=== PATIENT | female | born 1955 | race Caucasian/White ===

== ENCOUNTER → 2021-05-28 | Outpatient (CLI) | payer MEDICARE | END | disposition home or self-care (01) | LOC: SHCH 14:57 | PROVIDERS: ATTEND Internal Medicine Cardiovascular Disease | DX: I35.1 Nonrheumatic aortic (valve) insufficiency (principal); R55 Syncope and collapse; R00.2 Palpitations | CPT/HCPCS: 93306; 93356 ==

== ENCOUNTER 2021-07-15 06:54 | Day surgery (SDC) | payer MEDICARE ==
[2021-07-13 11:31] LABS: BASOPHILS % (AUTO) 0.2 % (0.0-5.0); LYMPHOCYTES % (AUTO) 30.7 % (21.0-51.0); MEAN CORPUSCULAR HEMOGLOBIN 30.1 pg (27.0-33.0); MEAN CORPUSCULAR HGB CONC 32.4 g/dL (32.0-36.0); MEAN CORPUSCULAR VOLUME 93.1 fL (79-99); MONOCYTES % (AUTO) 7.3 % (3.0-13.0); NEUTROPHILS % (AUTO) 61.6 % (40.0-77.0); PLATELET COUNT (AUTO) 175 K/uL (130-400); RED BLOOD CELL COUNT(AUTO) 4.08 MIL/uL (4.00-5.50); RED CELL DISTRIBUTION WIDTH 13.5 % (11.0-15.5); WHITE BLOOD COUNT (AUTO) 5.5 K/uL (4.8-10.8)
[2021-07-13 11:46] LABS: CREATININE 0.8 mg/dL (0.5-1.5); POTASSIUM 4.3 mmol/L (3.5-5.1)
[2021-07-13 11:49] LABS: PROTHROMBIN TIME 10.9 SEC (9.6-11.6)
[2021-07-13 11:50] LABS: PARTIAL THROMBOPLASTIN TIME 24.5 SEC (26.3-35.5)
[2021-07-14 09:27] VITALS: BP 170/91
[~2021-07-15] VITALS: Ht 182.9 cm; Wt 79.0 kg
[2021-07-15] VITALS (8 sets, daily range): BP systolic 122–155; BP diastolic 63–95
[~2021-07-15 06:54] MED LIST: 0.9%NACL 1000ML 1,000 ML IV SCH; ADV250 IH; ALBU0.63 IH; ALBUHFA IH; ASCO250T22 PO; AZEL137S11 NS; DEXL60CA3 PO; ESTR10TA9 VG; ESTR1TAB17 PO; FAMC500T8 PO; FLUTICASONE IH; FURO40TA5 PO; GLUTATHIONE PO; HYPERSAL 3.5% IH; KETO5DRO82 OP; LACT1CAP78 PO; LEVO112T4 PO; LINA290C PO; LOTE10DR OP; MTH/1CAP7 PO; NITRO STAT; OIL OF OREGANO PO; OMEG-116 PO; OXYC15TA2 PO; POTA-202 PO; PROVIGIL 200 MG PO; STEVIA PO; TIZA-211 PO; VITAD50000 PO; ZINC30TA2 PO; [UNRECOGNIZED DRUG - OTHER] PO; [UNRECOGNIZED DRUG - OTHER] PO; [UNRECOGNIZED DRUG - OTHER] PO; [UNRECOGNIZED DRUG - OTHER] PO; [UNRECOGNIZED DRUG - OTHER] PO
[2021-07-15] MEDS ORDERED: MIDAZOLAM HCL 1 MG/ML 2ML VIAL ONE (14:51)
[2021-07-15] MEDS ORDERED: LIDOCAINE HCL 400MG/20ML VIAL ONE (14:51)
[2021-07-15] MEDS ORDERED: MEPERIDINE-PF 25 MG/ML SYG ONE (14:51)
[2021-07-15] MEDS ORDERED: HEPARIN 10,000 UNIT/10ML (1,000 UNIT/ML) VIAL ONE (14:51)
[2021-07-15] MEDS ORDERED: FENTANYL CITRATE PF 50 MCG/1 ML 2ML VIAL ONE (15:16)
[2021-07-15] MEDS ORDERED: ISOPROTERENOL HCL 0.2 MG/ML AMP/VIAL/BAG ONE (15:56)
[2021-07-15] MEDS ORDERED: PIND10TA2 PO (16:58)
== END 2021-07-15 20:15 | disposition home or self-care (01) ==
LOC: DAH 06:54
PROVIDERS: ATTEND Internal Medicine Cardiovascular Disease
DX: I47.1 Supraventricular tachycardia (principal); G90.3 Multi-system degeneration of the autonomic nervous system; I49.3 Ventricular premature depolarization; I10 Essential (primary) hypertension; E03.9 Hypothyroidism, unspecified; J45.909 Unspecified asthma, uncomplicated; G47.33 Obstructive sleep apnea (adult) (pediatric); K21.9 Gastro-esophageal reflux disease without esophagitis; Z79.01 Long term (current) use of anticoagulants; Z88.8 Allergy status to other drugs, medicaments and biological substances; Z88.0 Allergy status to penicillin
CPT/HCPCS: 36415; 80048; 85025; 85610; 85730; 93620; 93621; 93623; A4215; A4216; A4221; A4222; A4223 ×3; A4606; A4649 ×2; A4663; C1730 ×4; C1894 ×5; J1644; J2250; J3010; J3490 ×2; J7030; 99156; 99157; J2175

== ENCOUNTER → 2021-11-16 | Outpatient (CLI) | payer MEDICARE ==
[~2021-11-16] MED LIST changes: -0.9%NACL 1000ML 1,000 ML IV SCH; +PIND10TA2 PO
== END | disposition home or self-care (01) ==
LOC: RAH 09:44
PROVIDERS: ATTEND Internal Medicine Gastroenterology
DX: R13.12 Dysphagia, oropharyngeal phase (principal); R63.30 Feeding difficulties, unspecified
CPT/HCPCS: 74230; 92611

== ENCOUNTER → 2022-02-09 | Outpatient (CLI) | payer MEDICARE | END | disposition home or self-care (01) | LOC: RAH 07:05 | PROVIDERS: ATTEND Internal Medicine Gastroenterology | DX: K31.84 Gastroparesis (principal) | CPT/HCPCS: 78264; A9541 ==

== ENCOUNTER → 2022-03-14 | Outpatient (CLI) | payer MEDICARE ==
[~2022-03-14] MED LIST changes: +GLYCOPYRROLATE 1 MG/5 ML SYRINGE ONE; +PHENYLEPHRINE HCL 10 MG/ML 1ML VIAL IV ONE
== END | disposition home or self-care (01) ==
LOC: RAH 15:02
PROVIDERS: ATTEND Urology
DX: N32.89 Other specified disorders of bladder (principal)
CPT/HCPCS: 76770; J3490; J2370

== ENCOUNTER → 2023-05-25 | Outpatient (CLI) | payer MEDICARE ==
[~2023-05-25] MED LIST changes: -GLYCOPYRROLATE 1 MG/5 ML SYRINGE ONE; -PHENYLEPHRINE HCL 10 MG/ML 1ML VIAL IV ONE
== END | disposition home or self-care (01) ==
LOC: RAH 13:07
PROVIDERS: ATTEND Internal Medicine Gastroenterology
DX: R13.10 Dysphagia, unspecified (principal); K21.9 Gastro-esophageal reflux disease without esophagitis
CPT/HCPCS: 74230; 92611

== ENCOUNTER → 2023-07-24 | Outpatient (CLI) | payer MEDICARE | END | disposition home or self-care (01) | LOC: RAH 09:25 | PROVIDERS: ATTEND Internal Medicine Gastroenterology | DX: R13.12 Dysphagia, oropharyngeal phase (principal) | CPT/HCPCS: 74220 ==